=== PATIENT | male | born 1965 | race Caucasian/White ===

== ENCOUNTER 2019-10-28 06:02 | Day surgery (SDC) | payer BC ==
[2019-10-24 08:52] LABS: CLARITY,URINE CLEAR (Clear); COLOR,URINE YELLOW (Yellow); GLUCOSE, URINE NEGATIVE (Neg); KETONES,URINE NEGATIVE (Neg); LEUKOCYTE ESTERASE ,URINE NEGATIVE (Neg); NITRITES, URINE NEGATIVE (Neg); OCCULT BLOOD,URINE LARGE (Neg); PROTEIN,URINE NEGATIVE (Neg); UROBILINOGEN,URINE 0.2 E.U/dL (0.2-1.0)
[2019-10-24 08:52] LABS: BASOPHILS % (AUTO) 0.4 % (0-1); EOSINOPHILS # (AUTO) 0.4 X10'3 (0-0.9); EOSINOPHILS % (AUTO) 5.7 % (0-6); LYMPHOCYTES # (AUTO) 1.7 X10'3 (1.1-4.8); LYMPHOCYTES % (AUTO) 24.9 % (21-51); MEAN CORPUSCULAR HEMOGLOBIN 32.6 PG (27.0-31.0); MEAN CORPUSCULAR HGB CONC 34.3 g/dL (33.0-36.5); MEAN PLATELET VOLUME 7.1 FL (7.4-10.4); MONOCYTES # (AUTO) 0.9 X10'3 (0-0.9); MONOCYTES % (AUTO) 12.5 % (2-12); NEUTROPHILS # (AUTO) 3.9 X10'3 (1.8-7.7); NEUTROPHILS % (AUTO) 56.5 % (42-75); PRE OP HEMATOCRIT 40.5 % (42.0-52.0); PRE OP HEMOGLOBIN 13.9 g/dL (14.0-17.9); PRE OP PLATELET COUNT 253 X10'3 (140-440); RED BLOOD COUNT 4.26 X10'6 (4.70-6.10); RED CELL DISTRIBUTION WIDTH 14.5 % (11.5-14.5)
[2019-10-24 08:54] LABS: UA COLLECTION TYPE CLN CATCH MIDSTREAM
[2019-10-24 09:02] LABS: WBC,URINE NONE SEEN /HPF (0-4)
[2019-10-24 09:03] LABS: BACTERIA,URINE NONE SEEN /HPF (Neg); RBC,URINE 50-100 /HPF (0-2); SQUAMOUS EPITHELIAL CELL,UR FEW /LPF (FEW)
[2019-10-24 09:08] LABS: ALBUMIN 3.8 G/DL (3.4-5.0); ALKALINE PHOSPHATASE 89 IU/L (46-116); BLOOD UREA NITROGEN 22 MG/DL (7-18); BUN/CREATININE RATIO 22.9 (5.4-32.0); CALCIUM 8.7 MG/DL (8.5-10.1); CHLORIDE 105 MMOL/L (99-107); CREATININE 0.96 MG/DL (0.60-1.10); PRE OP ALT 28 U/L (30-65); PRE OP ANION GAP 13 (8-16); PRE OP AST 16 U/L (10-37); PRE OP BILIRUB, TOTAL 0.6 MG/DL (0.0-1.0); PRE OP GLUCOSE 138 MG/DL (70-104); PRE OP SODIUM 141 MMOL/L (135-145); TOTAL CARBON DIOXIDE 23.1 MMOL/L (24-32); TOTAL PROTEIN 7.8 G/DL (6.4-8.2); eGFR 81 ML/MIN
[2019-10-24 09:09] LABS: PRE OP POTASSIUM 3.3 MMOL/L (3.4-5.1)
[2019-10-28] VITALS (7 sets, daily range): BP systolic 121–133; BP diastolic 72–94
[~2019-10-28] VITALS: Ht 205.7 cm; Wt 136.1 kg
[~2019-10-28 06:02] MED LIST: ATOR40TA PO; BUPR150T8 PO; CELE-193 PO; FLUO20CA39 PO; famotidine 20mg tablet PO ONE; ringers solution, lacted 1,000 ML IV SCH
[2019-10-28] MEDS ORDERED: cefazolin/dext.iso 2gm/50ml 50 ML IV ONE (07:05)
[2019-10-28] MEDS ORDERED: LIDOcaine 1% (10mg/ml) 2ml vial ONE (07:17)
[2019-10-28] MEDS ORDERED: ringers solution, lacted 1,000 ML IV SCH (07:32)
[2019-10-28] MEDS ORDERED: morphine 4 MG/ML inj SYRINge IV PRN (07:35)
[2019-10-28] MEDS ORDERED: meperidine/PF 25mg/ml syringe IV PRN ×3 (07:35)
[2019-10-28] MEDS ORDERED: proCHLORperazine 10 MG/2 ml inj IV PRN (07:35)
[2019-10-28] MEDS ORDERED: morphine 2 MG/ML inj. syringe IV PRN (07:35)
[2019-10-28] MEDS ORDERED: ondansetron/PF 4mg/2ml inj IV PRN (07:35)
[2019-10-28] MEDS ORDERED: cloNIDine hcl/PF 100mcg/ml inj ONE (08:29)
[2019-10-28] MEDS ORDERED: sevoflurane 250ml liquid IH ONE (08:32)
[2019-10-28] MEDS ORDERED: midazolam 2 mg/2 ml injection ONE ×2 (08:41)
[2019-10-28] MEDS ORDERED: fentaNYL/PF 50MCG/1 ML 2ML syringe ONE (08:42)
[2019-10-28] MEDS ORDERED: propofol inj 20 ML IV ONE (08:59)
[2019-10-28] MEDS ORDERED: LIDOcaine 2% (20mg/ml) 5ml vial ONE (08:59)
[2019-10-28] MEDS ORDERED: dexamethasone sod phosphate 4mg/ml inj. ONE (09:09)
[2019-10-28] MEDS ORDERED: ondansetron/PF 4mg/2ml inj ONE (09:09)
[2019-10-28] MEDS ORDERED: ROPIVAcaine 0.5% (5mg/ml) 30ml vial ONE (09:54)
[2019-10-28] MEDS ORDERED: ketorolac trometh. 30mg/ml inj. ONE (09:56)
--- NOTE | 2019-10-28 10:10 | NUR ---
Received from OR via BED, accompanied by Anesthesiologist DR ARECHIGA--- and report given by Anesthesiolgist. PATIENT A&OX4, DENIES PAIN, V/S WNL, NEUROVASCULAR CHECKS INTACT, 20G PIV LUE, SCD ON, DRESSING TO LEFT FOOT CDI
--- NOTE | 2019-10-28 11:00 | NUR ---
PATIENT A&OX4, DENIES PAIN, V/S WNL, NEUROVASCULAR CHECKS INTACT, 20G PIV LUE D/C, SCD OFF, DRESSING TO LEFT FOOT CDI I HAVE REVIEWED D/C INSTRUCTIONS WITH PATIENT AND FAMILY AND THEY HAVE VERBALIZED UNDERSTANDING. PATIENT D/C HOME WITH ALL BELONGINGS AND FAMILY GAVE TRANSPORT HOME.
== END 2019-10-28 11:00 | disposition home or self-care (01) ==
LOC: PAS 06:02
PROVIDERS: ATTEND Podiatrist Foot & Ankle Surgery
DX: T81.89XA Other complications of procedures, not elsewhere classified, initial encounter (principal); M86.9 Osteomyelitis, unspecified; I96 Gangrene, not elsewhere classified; F41.9 Anxiety disorder, unspecified; M19.90 Unspecified osteoarthritis, unspecified site; E66.9 Obesity, unspecified; Z68.32 Body mass index [BMI] 32.0-32.9, adult; G89.18 Other acute postprocedural pain; Z11.59 Encounter for screening for other viral diseases; Z96.653 Presence of artificial knee joint, bilateral; Z79.899 Other long term (current) drug therapy; Z90.79 Acquired absence of other genital organ(s); Z87.891 Personal history of nicotine dependence; Y83.8 Other surgical procedures as the cause of abnormal reaction of the patient, or of later complication, without mention of misadventure at the time of the procedure; Y92.89 Other specified places as the place of occurrence of the external cause
CPT/HCPCS: 28805; 36415; 64445; 64447; 73620; 80053; 81001; 82948; 85025; 93005; A6222; J0735; J1100; J1885; J2001; J2250; J2405; J2704; J3010; J7120; U0003; A4618; A6449; A7000; J2795

== ENCOUNTER 2020-09-04 12:36 | Emergency (ER) | payer BC, MEDICAID ==
[~2020-09-04] VITALS: Ht 205.7 cm; Wt 137.4 kg
[~2020-09-04 12:36] MED LIST changes: -famotidine 20mg tablet PO ONE; -ringers solution, lacted 1,000 ML IV SCH
[2020-09-04] MEDS ORDERED: vancomycin/NS 1 GM ADD-VANTAGE 250 ML IV ONE (14:55)
[2020-09-04] MEDS ORDERED: piperacillin/tazo 3.375gm/50ml 50 ML IV ONE (14:55)
[2020-09-04 15:27] LABS: BASOPHILS # (AUTO) 0.1 X10'3 (0-0.2); BASOPHILS % (AUTO) 0.8 % (0-1); EOSINOPHILS # (AUTO) 0.5 X10'3 (0-0.9); EOSINOPHILS % (AUTO) 5.1 % (0-6); HEMATOCRIT 38.5 % (42.0-52.0); HEMOGLOBIN 13.1 g/dl (14.0-17.9); LYMPHOCYTES # (AUTO) 1.9 X10'3 (1.1-4.8); LYMPHOCYTES % (AUTO) 20.4 % (21-51); MEAN CORPUSCULAR HEMOGLOBIN 32.4 PG (27.0-31.0); MEAN CORPUSCULAR HGB CONC 34.1 g/dL (33.0-36.5); MEAN PLATELET VOLUME 7.1 FL (7.4-10.4); MONOCYTES # (AUTO) 1.1 X10'3 (0-0.9); MONOCYTES % (AUTO) 12.4 % (2-12); NEUTROPHILS # (AUTO) 5.6 X10'3 (1.8-7.7); NEUTROPHILS % (AUTO) 61.3 % (42-75); PLATELET COUNT 310 X10'3 (140-440); RED BLOOD COUNT 4.05 X10'6 (4.70-6.10); RED CELL DISTRIBUTION WIDTH 13.8 % (11.5-14.5); WHITE BLOOD COUNT 9.1 X10'3 (4.5-11.0)
[2020-09-04 15:41] LABS: ALANINE AMINOTRANSFERASE 30 U/L (12-78); ALBUMIN 3.6 G/DL (3.4-5.0); ALBUMIN/GLOBULIN RATIO 0.8 (1.1-1.5); ALKALINE PHOSPHATASE 76 IU/L (46-116); ANION GAP 11 (8-16); ASPARTATE AMINO TRANSFERASE 15 U/L (10-37); BILIRUBIN,TOTAL 0.3 MG/DL (0.1-1.0); BLOOD UREA NITROGEN 22 MG/DL (7-18); BUN/CREATININE RATIO 28.2 (5.4-32.0); CALCIUM 9.1 MG/DL (8.5-10.1); CHLORIDE 105 MMOL/L (99-107); CREATININE 0.78 MG/DL (0.60-1.10); GLUCOSE 96 MG/DL (70-104); MAGNESIUM 2.1 MG/DL (1.5-2.4); POTASSIUM 3.5 MMOL/L (3.5-5.1); SODIUM 139 MMOL/L (135-145); TOTAL CARBON DIOXIDE 23.3 MMOL/L (24-32); TOTAL PROTEIN 8.1 G/DL (6.4-8.2); eGFR > 90 ML/MIN
[2020-09-04 16:13] LABS: CLARITY,URINE CLEAR (Clear); COLOR,URINE YELLOW (Yellow); GLUCOSE, URINE NEGATIVE (Neg); KETONES,URINE TRACE mg/dl (Neg); LEUKOCYTE ESTERASE ,URINE NEGATIVE (Neg); NITRITES, URINE NEGATIVE (Neg); OCCULT BLOOD,URINE MODERATE (Neg); PROTEIN,URINE TRACE mg/dl (Neg); UROBILINOGEN,URINE 0.2 E.U/dL (0.2-1.0)
[2020-09-04 16:15] LABS: UA COLLECTION TYPE CLN CATCH MIDSTREAM
[2020-09-04 16:27] LABS: BACTERIA,URINE NONE SEEN /HPF (Neg); MUCUS STRANDS NONE SEEN /LPF (Neg); SQUAMOUS EPITHELIAL CELL,UR FEW /LPF (FEW); WBC,URINE 0-4 /HPF (0-4)
[2020-09-04] MEDS ORDERED: DOXY100C2 PO (18:52)
[2020-09-04] MEDS ORDERED: GADOTERATE MEGLUMINE 7.5 MMOL/15 ML VIAL IV ONE (18:58)
[2020-09-04 20:21] VITALS: BP 137/88
== END 2020-09-04 20:24 | disposition home or self-care (01) ==
LOC: ER 12:37
DX: L97.519 Non-pressure chronic ulcer of other part of right foot with unspecified severity (principal); L03.115 Cellulitis of right lower limb; E78.00 Pure hypercholesterolemia, unspecified; Z87.891 Personal history of nicotine dependence; Z98.890 Other specified postprocedural states; Z79.899 Other long term (current) drug therapy
CPT/HCPCS: 36415; 71045; 73630; 73720; 80053; 81001; 83605; 83735; 84145; 85025; 87040; 93005; 96365; 96366; 96367; 99285; A9575; J2543; J3370

== ENCOUNTER 2020-10-18 09:46 | Outpatient (CLI) | payer BC, MEDICAID | END 2020-10-18 23:59 | disposition home or self-care (01) | LOC: RAD 09:46 | PROVIDERS: ATTEND Registered Nurse | DX: L03.116 Cellulitis of left lower limb (principal); M79.672 Pain in left foot; M79.671 Pain in right foot | CPT/HCPCS: 78800; A9570 ==

== ENCOUNTER → 2020-11-09 | Day surgery (SDC) | payer BC, MEDICAID ==
[2020-10-31 13:51] LABS: BASOPHILS # (AUTO) 0.1 X10'3 (0-0.2); BASOPHILS % (AUTO) 0.6 % (0-1); EOSINOPHILS # (AUTO) 0.1 X10'3 (0-0.9); EOSINOPHILS % (AUTO) 1.7 % (0-6); LYMPHOCYTES # (AUTO) 1.7 X10'3 (1.1-4.8); LYMPHOCYTES % (AUTO) 19.8 % (21-51); MEAN CORPUSCULAR HEMOGLOBIN 31.6 PG (27.0-31.0); MEAN CORPUSCULAR HGB CONC 33.7 g/dL (33.0-36.5); MEAN PLATELET VOLUME 7.2 FL (7.4-10.4); MONOCYTES # (AUTO) 0.9 X10'3 (0-0.9); MONOCYTES % (AUTO) 10.4 % (2-12); NEUTROPHILS # (AUTO) 5.8 X10'3 (1.8-7.7); NEUTROPHILS % (AUTO) 67.5 % (42-75); PRE OP HEMATOCRIT 38.6 % (42.0-52.0); PRE OP PLATELET COUNT 335 X10'3 (140-440); RED BLOOD COUNT 4.11 X10'6 (4.70-6.10); RED CELL DISTRIBUTION WIDTH 15.2 % (11.5-14.5)
[2020-10-31 13:53] LABS: CLARITY,URINE CLEAR (Clear); COLOR,URINE YELLOW (Yellow); GLUCOSE, URINE NEGATIVE (Neg); KETONES,URINE NEGATIVE (Neg); LEUKOCYTE ESTERASE ,URINE NEGATIVE (Neg); NITRITES, URINE NEGATIVE (Neg); OCCULT BLOOD,URINE TRACE-INTACT (Neg); PROTEIN,URINE TRACE mg/dl (Neg); UROBILINOGEN,URINE 0.2 E.U/dL (0.2-1.0)
[2020-10-31 14:01] LABS: UA COLLECTION TYPE CLN CATCH MIDSTREAM
[2020-10-31 14:03] LABS: BACTERIA,URINE NONE SEEN /HPF (Neg); SQUAMOUS EPITHELIAL CELL,UR FEW /LPF (FEW)
[2020-10-31 14:04] LABS: MUCUS STRANDS NONE SEEN /LPF (Neg)
[2020-10-31 14:04] LABS: ALBUMIN 3.8 G/DL (3.4-5.0); ALBUMIN/GLOBULIN RATIO 0.9 (1.1-1.5); ALKALINE PHOSPHATASE 80 IU/L (46-116); BLOOD UREA NITROGEN 22 MG/DL (7-18); BUN/CREATININE RATIO 27.8 (5.4-32.0); CALCIUM 8.7 MG/DL (8.5-10.1); CHLORIDE 106 MMOL/L (99-107); CREATININE 0.79 MG/DL (0.60-1.10); PRE OP ALT 22 U/L (30-65); PRE OP ANION GAP 11 (8-16); PRE OP AST 17 U/L (10-37); PRE OP BILIRUB, TOTAL 0.2 MG/DL (0.0-1.0); PRE OP GLUCOSE 110 MG/DL (70-104); PRE OP POTASSIUM 3.6 MMOL/L (3.4-5.1); PRE OP SODIUM 140 MMOL/L (135-145); TOTAL CARBON DIOXIDE 22.9 MMOL/L (24-32); TOTAL PROTEIN 8.2 G/DL (6.4-8.2); eGFR > 90 ML/MIN
[~2020-11-09] VITALS: Ht 205.7 cm; Wt 134.0 kg
[2020-11-09] VITALS (7 sets, daily range): BP systolic 118–139; BP diastolic 70–87
[~2020-11-09] MED LIST changes: -ATOR40TA PO; +FENO48TA9 PO; +ROPIVAcaine 0.5% (5mg/ml) 30ml vial ONE; +bacitracin 15gm ointment TP ONE; +cefazolin/dext.iso 2gm/100ml IV ONE; +famotidine 20mg tablet PO ONE; +fentaNYL/PF 50MCG/1 ML 2ML syringe ONE; +meperidine/PF 25mg/ml syringe IV PRN; +midazolam 1 mg/ML 2ml injection ONE; +morphine 2 MG/ML inj. syringe IV PRN; +morphine 4 MG/ML inj SYRINge IV PRN; +ondansetron/PF 4mg/2ml inj IV PRN; +proCHLORperazine 10 MG/2 ml inj IV PRN; +propofol inj 20 ML IV ONE; +ringers solution, lacted 1,000 ML IV SCH; +sevoflurane 250ml liquid IH ONE
--- NOTE | 2020-11-09 12:02 | NUR ---
RECEOVED REPORT ASSUME CARE VSS NO DISTRESS, DENIES PAIN, DRESSING TO RIGHT FOOT CDI, CONT TO MONITOR Addendum: 11/09/20 at 1232 by Domi Goss RN Amended: Links added.
--- NOTE | 2020-11-09 12:52 | NUR ---
PT AWAKE ALET TO POS VSS MEETS CRITERIA TO DC HOME INST GIVEN NO ?'S OR CONCERNS Addendum: 11/09/20 at 1256 by Domi Goss RN Amended: Links added.
== END | disposition home or self-care (01) ==
LOC: PAS 09:43
PROVIDERS: ATTEND Podiatrist Foot & Ankle Surgery
DX: M24.574 Contracture, right foot (principal); L97.519 Non-pressure chronic ulcer of other part of right foot with unspecified severity; F41.9 Anxiety disorder, unspecified; F32.9 Major depressive disorder, single episode, unspecified; M19.90 Unspecified osteoarthritis, unspecified site; G43.909 Migraine, unspecified, not intractable, without status migrainosus; G89.18 Other acute postprocedural pain; E66.9 Obesity, unspecified; Z68.31 Body mass index [BMI] 31.0-31.9, adult; Z79.899 Other long term (current) drug therapy; Z96.653 Presence of artificial knee joint, bilateral; Z98.890 Other specified postprocedural states; Z87.891 Personal history of nicotine dependence
CPT/HCPCS: 27687; 28122; 36415; 64445; 76942; 80053; 81001; 82948; 85025; 87088; A6223; J2250; J2270; J2704; J3010; A4215; A4618; A6253; A6449; A7000; J2795; J7120

== ENCOUNTER 2021-05-31 05:52 | Day surgery (SDC) | payer BC, MEDICAID ==
[2021-05-24 16:23] LABS: BASOPHILS # (AUTO) 0.1 X10'3 (0-0.2); BASOPHILS % (AUTO) 0.8 % (0-1); EOSINOPHILS # (AUTO) 0.3 X10'3 (0-0.9); EOSINOPHILS % (AUTO) 4.2 % (0-6); LYMPHOCYTES % (AUTO) 29.1 % (21-51); MEAN CORPUSCULAR HEMOGLOBIN 33.3 PG (27.0-31.0); MEAN CORPUSCULAR HGB CONC 33.9 g/dL (33.0-36.5); MEAN CORPUSCULAR VOLUME 98.2 FL (78-98); MONOCYTES # (AUTO) 0.9 X10'3 (0-0.9); NEUTROPHILS # (AUTO) 3.7 X10'3 (1.8-7.7); NEUTROPHILS % (AUTO) 52.9 % (42-75); PRE OP HEMATOCRIT 40.4 % (42.0-52.0); PRE OP HEMOGLOBIN 13.7 g/dL (14.0-17.9); PRE OP PLATELET COUNT 316 X10'3 (140-440); RED BLOOD COUNT 4.11 X10'6 (4.70-6.10); RED CELL DISTRIBUTION WIDTH 15.4 % (11.5-14.5)
[2021-05-24 16:55] LABS: ALKALINE PHOSPHATASE 65 IU/L (46-116); BLOOD UREA NITROGEN 22 MG/DL (7-18); BUN/CREATININE RATIO 26.8 (5.4-32.0); CALCIUM 8.7 MG/DL (8.5-10.1); CHLORIDE 103 MMOL/L (99-107); CREATININE 0.82 MG/DL (0.60-1.10); PRE OP ALT 31 U/L (30-65); PRE OP ANION GAP 9 (8-16); PRE OP AST 17 U/L (10-37); PRE OP BILIRUB, TOTAL 0.4 MG/DL (0.0-1.0); PRE OP GLUCOSE 100 MG/DL (70-104); PRE OP POTASSIUM 3.7 MMOL/L (3.4-5.1); PRE OP SODIUM 138 MMOL/L (135-145); TOTAL CARBON DIOXIDE 25.6 MMOL/L (24-32); TOTAL PROTEIN 8.1 G/DL (6.4-8.2); eGFR > 90 ML/MIN
[~2021-05-31] VITALS: Ht 205.7 cm; Wt 129.3 kg
[2021-05-31] VITALS (7 sets, daily range): BP systolic 120–142; BP diastolic 84–90
[~2021-05-31 05:52] MED LIST changes: +FENO48TA10 PO; -FENO48TA9 PO; -ROPIVAcaine 0.5% (5mg/ml) 30ml vial ONE; -bacitracin 15gm ointment TP ONE; -cefazolin/dext.iso 2gm/100ml IV ONE; -famotidine 20mg tablet PO ONE; -fentaNYL/PF 50MCG/1 ML 2ML syringe ONE; -meperidine/PF 25mg/ml syringe IV PRN; -midazolam 1 mg/ML 2ml injection ONE; -morphine 2 MG/ML inj. syringe IV PRN; -morphine 4 MG/ML inj SYRINge IV PRN; -ondansetron/PF 4mg/2ml inj IV PRN; -proCHLORperazine 10 MG/2 ml inj IV PRN; -propofol inj 20 ML IV ONE; -ringers solution, lacted 1,000 ML IV SCH; -sevoflurane 250ml liquid IH ONE
[2021-05-31] MEDS ORDERED: ceFAZolin inj. 3,000 MG in normal saline 100ml IV soln 100 ML IV ONE (06:00)
[2021-05-31] MEDS ORDERED: vancomycin 1,500 MG in NS 300ml IV soln IV ONE (06:00)
[2021-05-31] MEDS ORDERED: ringers solution, lacted 1,000 ML IV SCH ×2 (06:00→08:05)
[2021-05-31] MEDS ORDERED: famotidine 20mg tablet PO ONE (06:00)
[2021-05-31] MEDS ORDERED: bacitracin 15gm ointment TP ONE (06:54)
[2021-05-31] MEDS ORDERED: BUPIVAcaine/PF 2.5mg/ml (0.25%) 10ml vial ONE (06:54)
[2021-05-31] MEDS ORDERED: morphine 2 MG/ML inj. syringe IV PRN (08:05)
[2021-05-31] MEDS ORDERED: labetalol 20mg/4ml (5mg/ml) syringe IV PRN (08:05)
[2021-05-31] MEDS ORDERED: fentaNYL/PF 50MCG/1 ML 2ML syringe IV PRN ×2 (08:05)
[2021-05-31] MEDS ORDERED: morphine 4 MG/ML inj SYRINge IV PRN (08:05)
[2021-05-31] MEDS ORDERED: hydrALAZINE 20mg/ml inj. IV PRN (08:05)
[2021-05-31] MEDS ORDERED: ondansetron/PF 4mg/2ml inj IV PRN (08:05)
[2021-05-31] MEDS ORDERED: fentaNYL/PF 50MCG/1 ML 2ML syringe ONE (08:38)
[2021-05-31] MEDS ORDERED: midazolam 1 mg/ML 2ml injection ONE (08:39)
[2021-05-31] MEDS ORDERED: LIDOcaine 2% (20mg/ml) 5ml vial ONE (08:40)
[2021-05-31] MEDS ORDERED: propofol inj 20 ML IV ONE (08:40)
[2021-05-31] MEDS ORDERED: ondansetron/PF 4mg/2ml inj ONE (08:41)
[2021-05-31] MEDS ORDERED: ketorolac trometh. 30mg/ml inj. ONE (09:17)
--- NOTE | 2021-05-31 09:33 | NUR ---
Received from OR via , accompanied by Anesthesiologist DR MTZ and report given by Anesthesiolgist.AWAKENS TO VOICE. VITALS STABLE. DRESSING DI. CHOCO PAIN.
[2021-05-31] MEDS ORDERED: HYDROcodone/acetaminophen 10/325mg tab PO ONE (10:20)
--- NOTE | 2021-05-31 10:43 | NUR ---
AWAKE AND ORIENTED. VITALS STABLE. DRESSING DI. CHOCO PAIN. HOME WITH HIS AT THIS TIME.
[2021-05-31] MEDS ORDERED: HYDR-3972 PO (11:15)
== END 2021-05-31 10:43 | disposition home or self-care (01) ==
LOC: PAS 05:52
PROVIDERS: ATTEND Podiatrist Foot & Ankle Surgery
DX: M21.6X1 Other acquired deformities of right foot (principal); T81.32XA Disruption of internal operation (surgical) wound, not elsewhere classified, initial encounter; G89.18 Other acute postprocedural pain; E78.5 Hyperlipidemia, unspecified; M19.90 Unspecified osteoarthritis, unspecified site; F32.A Depression, unspecified; Z98.890 Other specified postprocedural states; Z87.891 Personal history of nicotine dependence; Z85.46 Personal history of malignant neoplasm of prostate; Z79.899 Other long term (current) drug therapy; Z96.653 Presence of artificial knee joint, bilateral; Z20.822 Contact with and (suspected) exposure to COVID-19; Y83.8 Other surgical procedures as the cause of abnormal reaction of the patient, or of later complication, without mention of misadventure at the time of the procedure; Y92.89 Other specified places as the place of occurrence of the external cause
CPT/HCPCS: 27685; 28805; 36415; 64445; 64447; 71045; 73620; 76000; 76942; 80053; 82948; 85025; 93005; A6223; J0690; J1885; J2250; J2405; J2704; J3010; J3370; J3490; J7030; J7040; J7120; U0003; U0005; Z7506; Z7508; Z7512; A4618; A6253; A6449; A7000

== ENCOUNTER 2022-07-25 07:54 | Day surgery (SDC) | payer BC, MEDICAID ==
[~2022-07-25] VITALS: Ht 210.8 cm; Wt 123.2 kg
[~2022-07-25 07:54] MED LIST changes: +DESV50TA20 PO; -FLUO20CA39 PO; +GLUCOSAMINE; +ceFAZolin inj. 3,000 MG in normal saline 100ml IV soln 100 ML IV ONE; +famotidine 20mg tablet PO ONE; +ringers solution, lacted 1,000 ML IV SCH
[2022-07-25] MEDS ORDERED: famotidine 20mg tablet PO ONE (08:25)
[2022-07-25 08:30] VITALS: BP 124/84
[2022-07-25 09:20] LABS: BASOPHILS % (AUTO) 0.6 % (0-1); EOSINOPHILS # (AUTO) 0.2 X10'3 (0-0.9); EOSINOPHILS % (AUTO) 4.1 % (0-6); LYMPHOCYTES # (AUTO) 1.3 X10'3 (1.1-4.8); LYMPHOCYTES % (AUTO) 25.6 % (21-51); MEAN CORPUSCULAR HEMOGLOBIN 34.1 PG (27.0-31.0); MEAN CORPUSCULAR HGB CONC 34.8 g/dL (33.0-36.5); MEAN PLATELET VOLUME 6.8 FL (7.4-10.4); MONOCYTES # (AUTO) 0.5 X10'3 (0-0.9); NEUTROPHILS # (AUTO) 2.9 X10'3 (1.8-7.7); NEUTROPHILS % (AUTO) 58.7 % (42-75); PRE OP HEMATOCRIT 38.1 % (42.0-52.0); PRE OP HEMOGLOBIN 13.2 g/dL (14.0-17.9); PRE OP PLATELET COUNT 285 X10'3 (140-440); RED BLOOD COUNT 3.88 X10'6 (4.70-6.10); RED CELL DISTRIBUTION WIDTH 15.5 % (11.5-14.5)
[2022-07-25 09:30] LABS: ALBUMIN 4.1 G/DL (3.4-5.0); ALBUMIN/GLOBULIN RATIO 1.1 (1.1-1.5); ALKALINE PHOSPHATASE 59 IU/L (46-116); BLOOD UREA NITROGEN 15 MG/DL (7-18); BUN/CREATININE RATIO 22.1 (10.0-20.0); CALCIUM 8.7 MG/DL (8.5-10.1); CHLORIDE 108 MMOL/L (99-107); CREATININE 0.68 MG/DL (0.60-1.10); PRE OP ALT 25 U/L (30-65); PRE OP ANION GAP 9 (8-16); PRE OP AST 18 U/L (10-37); PRE OP BILIRUB, TOTAL 0.4 MG/DL (0.0-1.0); PRE OP GLUCOSE 99 MG/DL (70-104); PRE OP POTASSIUM 3.5 MMOL/L (3.4-5.1); PRE OP SODIUM 139 MMOL/L (135-145); TOTAL CARBON DIOXIDE 21.6 MMOL/L (24-32); TOTAL PROTEIN 7.8 G/DL (6.4-8.2); eGFR > 90 ML/MIN
[2022-07-25] MEDS ORDERED: labetalol 20mg/4ml (5mg/ml) syringe IV PRN (09:45)
[2022-07-25] MEDS ORDERED: ringers solution, lacted 1,000 ML IV SCH (09:45)
[2022-07-25] MEDS ORDERED: ondansetron/PF 4mg/2ml inj IV PRN (09:45)
[2022-07-25] MEDS ORDERED: hydrALAZINE 20mg/ml inj. IV PRN (09:45)
[2022-07-25] MEDS ORDERED: morphine 4 MG/ML inj SYRINge IV PRN (09:45)
[2022-07-25] MEDS ORDERED: fentaNYL/PF 50MCG/1 ML 2ML syringe IV PRN ×2 (09:45)
[2022-07-25] MEDS ORDERED: morphine 2 MG/ML inj. syringe IV PRN (09:45)
[2022-07-25 10:01] LABS: CLARITY,URINE CLEAR (Clear); COLOR,URINE YELLOW (Yellow); GLUCOSE, URINE NEGATIVE (Neg); KETONES,URINE NEGATIVE (Neg); LEUKOCYTE ESTERASE ,URINE NEGATIVE (Neg); NITRITES, URINE NEGATIVE (Neg); OCCULT BLOOD,URINE NEGATIVE (Neg); PROTEIN,URINE NEGATIVE (Neg); UROBILINOGEN,URINE 0.2 E.U/dL (0.2-1.0)
[2022-07-25 10:02] LABS: UA COLLECTION TYPE VOIDED
[2022-07-25] MEDS ORDERED: bacitracin 15gm ointment TP ONE (10:38)
[2022-07-25] MEDS ORDERED: ROPIVAcaine 0.5% (5mg/ml) 30ml vial ONE (10:43)
[2022-07-25] MEDS ORDERED: propofol inj 20 ML IV ONE (10:45)
[2022-07-25] MEDS ORDERED: dexamethasone sod phosphate 4mg/ml inj. ONE (10:45)
[2022-07-25] MEDS ORDERED: LIDOcaine 2% (20mg/ml) 5ml vial ONE (10:45)
[2022-07-25] MEDS ORDERED: ondansetron/PF 4mg/2ml inj ONE ×2 (10:45→11:15)
[2022-07-25] MEDS ORDERED: fentaNYL/PF 50MCG/1 ML 2ML syringe ONE (10:54)
[2022-07-25] MEDS ORDERED: midazolam 1 mg/ML 2ml injection ONE (11:14)
[2022-07-25] MEDS ORDERED: tranexamic acid 100mg/ml inj. ONE ×2 (11:21→11:23)
--- NOTE | 2022-07-25 11:53 | NUR ---
Received from OR via [facility] , accompanied by Anesthesiologist BIBI and report given by Anesthesiolgist. PATIENT WITH 20G PIV IN RIGHT HAND RUNNING LR AT 100. DENIES PAIN AT THIS TIME. LEFT FOOT IN SUGAR TONG SPLINT. NO DRAINAGE. PATIENT HAS SENSATION DISTAL TO LONGN SPLINT. 10L MASK ON WITH 100% SATURATIONS. Addendum: 07/25/22 at 1207 by Shilo Cueto RN, RN Amended: Links added.
[2022-07-25 12:03] VITALS: BP 109/70
[2022-07-25 12:10] VITALS: BP 101/65
[2022-07-25 12:20] VITALS: BP 94/56
[2022-07-25 12:30] VITALS: BP 99/56
--- NOTE | 2022-07-25 12:43 | NUR ---
ABLE TO SAFELY AMBULATE AND TRANSFER SELF. IV TAKEN OUT WITHOUT ANY COMPLICATIONS. ALL DISCHARGE INSTRUCTIONS COVERED WITH PATIENT AND ALL QUESTIONS ANSWERED. PATIENT TAKEN OUT VIA WHEELCHAIR TO PERSONAL VEHICLE WHERE FAMILY/FRIEND DROVE PATIENT HOME. Addendum: 07/25/22 at 1256 by Shilo Cueto RN, RN Amended: Links added.
== END 2022-07-25 12:43 | disposition home or self-care (01) ==
LOC: PAS 07:54
PROVIDERS: ATTEND Podiatrist Foot & Ankle Surgery
DX: M21.6X2 Other acquired deformities of left foot (principal); F41.9 Anxiety disorder, unspecified; F32.A Depression, unspecified; G89.18 Other acute postprocedural pain; Z87.891 Personal history of nicotine dependence; Z89.432 Acquired absence of left foot; Z89.431 Acquired absence of right foot; Z98.890 Other specified postprocedural states; Z79.899 Other long term (current) drug therapy
CPT/HCPCS: 27687; 36415; 64445; 64447; 80053; 81003; 82948; 85025; 93005; A6223; J0690; J1100; J2250; J2405; J2704; J2795; J3010; J3490; J7030; J7120; Z7506; Z7508; Z7512; A4215; A4618; A6253; A6449; A7000